=== PATIENT | male | born 1960 | race Caucasian/White ===

== ENCOUNTER 2017-02-28 09:36 | Emergency (ER) | payer BC, OTHER ==
[~2017-02-28] VITALS: Ht 170.2 cm; Wt 68.8 kg
[2017-02-28 09:45] VITALS: TEMP 36.8; Ht 170.2 cm; Wt 68.8 kg
[2017-02-28] MEDS ORDERED: IBUPROFEN 600 MG TAB PO STA (09:51)
[2017-02-28] MEDS ORDERED: OXYC-57 PO (09:53)
--- NOTE | 2017-02-28 09:55 | EMERGENCY ROOM VISIT NOTE ---
History Report prepared by Faina: Yamilet Kinsey Under the Supervision of: Dr. Curt Altamirano M.D. First contact with patient: 09:47 Chief Complaint: FINGER PAIN Stated Complaint: DISLOCATED LEFT RING FINGER History of Present Illness The patient is a 56 year old male who presents to the Emergency Room with complaints of constant left ring finger pain beginning just [employer]. The patient states that he had a fall today just prior to arrival and is concerned that he may have dislocated his finger. He reports that he pushed on the finger once but when it did not move he decided to come in to the ED. He denies any loss of consciousness. Source of History: patient Onset: just [employer] Position: finger(s) Quality: other (dislocation) Timing: constant Associated Symptoms: No LOC Review of Systems See HPI for pertinent positives & negatives. A total of 10 systems reviewed and were otherwise negative. Past Medical & Surgical Medical Problems: (1) No significant past medical history Surgical Problems: (1) No history of previous surgery Family History FH: cancer Social History Smoking Status: Never Smoker Alcohol Use: occasionally Marital Status: Occupation Status: employed Current/Historical Medications Scheduled Diphenhydramine Hcl (Sleep) (Diphenhydramine Hcl), 1 TAB PO HS Scheduled PRN Oxycodone/Acetaminophen 5MG/325MG (Percocet 5MG/325MG), 1-2 TAB PO Q4H PRN for Pain Allergies Coded Allergies: No Known Allergies (Unverified , 02/28/17) Physical Exam Vital Signs Date Time Temp Pulse Resp B/P (MAP) Pulse Ox O2 Delivery O2 Flow Rate FiO2 02/28/17 10:22 64 17 140/95 98 02/28/17 09:45 36.8 77 18 148/88 98 Room Air Physical Exam GENERAL: Patient is a healthy-appearing well-nourished [] HEAD: Normocephalic atraumatic EYES: Ocular movements intact pupils equal and react to light OROPHARYNX mucous membranes are moist no exudates present no erythema or edema present NECK: Supple no nuchal rigidity CHEST: Good equal expansion LUNGS: Clear and equal to auscultation CARDIAC: Normal S1 and S2 ABDOMEN: Soft nontender no guarding BACK: No CVA tenderness EXTREMITIES: No pain upon palpation normal muscle strength in all groups no clubbing cyanosis or edema. Obvious deformity to the finger which I easily reduced. NEURO: Patient is following commands and answering questions appropriately. Alert and oriented x3 Cranial Nerves 2-12 grossly intact Medical Decision & Procedures ER Provider Diagnostic Interpretation: X-ray results as stated below per interpretation by me and the radiologist: LEFT FOURTH FINGER 3 VIEWS DISCUSSION: There is soft tissue swelling centered on the proximal interphalangeal joint. There is no dislocation. There are tiny age-indeterminate calcific/bony densities located adjacent to the volar base of the middle phalanx, and volar aspect of the proximal phalanx distally. IMPRESSION: 1. Soft tissue swelling centered on the proximal to phalangeal joint 2. Tiny age-indeterminate calcific/bony densities located volar to the proximal interphalangeal joint Electronically signed by: Ilan Damon M.D. 02/28/2017 10:03 AM Dictated Date/Time: 02/28/2017 10:00 AM Medications Administered Medications (Trade) Dose Ordered Sig/Amy Route Start Time Stop Time Status Last Admin Dose Admin Ibuprofen (Motrin Tab) 600 mg NOW STAT PO 02/28/17 09:51 02/28/17 09:52 DC 02/28/17 09:59 600 MG Procedure There is an obvious dislocation to the PIP joint. It was reduced by putting pressure pulling back along the finger itself and easily went back into place. The patient tolerated the procedure well. ED Course 0947: Past medical records reviewed. The patient was evaluated in room B12B. A complete history and physical examination was performed. 0951: Ibuprofen 600mg PO. 1012: I reevaluated and updated the patient. 1018: Upon reexamination the patient is doing well. I discussed results and treatment plan with the patient. He verbalizes agreement and understanding. The patient is ready for discharge. Medical Decision Differential diagnosis: Etiologies such as fracture, dislocation, neurovascular compromise, compartment syndrome, soft tissue injury, as well as others were entertained. This is a 56-year-old male who presents emergency department complaining of dislocated ring finger. This was immediately reduced in the emergency department. The patient does have appear to have a small fracture present. For this reason the patient was placed in a splint and zoraida taped. He was given Motrin in the emergency department and written for Percocet at home. Patient will follow-up with Dr. Black's office. Patient was in agreement with the treatment plan. Medication Reconcilliation Current Medication List: was personally reviewed by me Blood Pressure Screening Patient's blood pressure: Elevated blood pressure Blood pressure disposition: Referred to PCP Impression Primary Impression: Finger dislocation Scribe Attestation The scribe's documentation has been prepared under my direction and personally reviewed by me in its entirety. I confirm that the note above accurately reflects all work, treatment, procedures, and medical decision making performed by me. Departure Information Dispostion Home / Self-Care Prescriptions Oxycodone/Acetaminophen 5MG/325MG (PERCOCET 5MG/325MG) Tab 1-2 TAB PO Q4H Y for Pain, #14 TAB Prov: Curt Altamirano MD 02/28/17 Referrals Sabas Estevez Jr,D.O. (PCP) Forms HOME CARE DOCUMENTATION FORM, IMPORTANT VISIT INFORMATION, WORK / SCHOOL INSTRUCTIONS Patient Instructions ED Dislocation Finger Redu, ED RICE, [facility] Additional Instructions Follow up with Dr Black's office You were found to have an elevated blood pressure today (>120 sytolic or >90 diastolic). Per medicare guidelines, you need to follow up with this blood pressure screening with your Primary Care Physician (PCP). For a new PCP call [phone]. You received narcotic or benzodiazepene medication while in the emergency room today. Do not drive, operate heavy machinery, or drink alcohol under the influence of this medication. Take 600 mg Ibuprofen every 6 hours Take Percocet for breakthrough pain You have been examined and treated today on an emergency basis only. This is not a substitute for, or an effort to provide, complete comprehensive medical care. It is impossible to recognize and treat all injuries or illnesses in a single emergency department visit. It is therefore important that you follow up closely with Dr Estevez. Call as soon as possible for an appointment. Thank you for your time and consideration. I look forward to speaking with you again soon. Please don't hesitate to call us if you have any questions. Problem Qualifiers Primary Impression: Finger dislocation Encounter type: initial encounter Qualified Codes: S63.259A - Unspecified dislocation of unspecified finger, initial encounter
--- NOTE | 2017-02-28 10:04 | DIAGNOSTIC IMAGING REPORT ---
LEFT FOURTH FINGER 3 VIEWS CLINICAL HISTORY: Left ring finger pain COMPARISON: None DISCUSSION: There is soft tissue swelling centered on the proximal interphalangeal joint. There is no dislocation. There are tiny age-indeterminate calcific/bony densities located adjacent to the volar base of the middle phalanx, and volar aspect of the proximal phalanx distally. IMPRESSION: 1. Soft tissue swelling centered on the proximal to phalangeal joint 2. Tiny age-indeterminate calcific/bony densities located volar to the proximal interphalangeal joint Electronically signed by: Ilan Damon M.D. 02/28/2017 10:03 AM Dictated Date/Time: 02/28/2017 10:00 AM
[2017-02-28] MEDS ORDERED: DIPH50TA10 PO (10:15)
[2017-02-28 10:22] VITALS: BP 140/95; PULSE 64; O2SAT 98
== END 2017-02-28 10:24 | disposition home or self-care (01) ==
LOC: C.EDB 09:45
DX: S63.285A Dislocation of proximal interphalangeal joint of left ring finger, initial encounter (principal); W19.XXXA Unspecified fall, initial encounter

== ENCOUNTER → 2017-09-21 | Outpatient (CLI) | payer BC ==
[~2017-09-21] MED LIST: DIPH50TA10 PO
== END | disposition home or self-care (01) ==
LOC: C.LAB1850 07:24
DX: Z13.220 Encounter for screening for lipoid disorders (principal); Z13.1 Encounter for screening for diabetes mellitus; N40.0 Benign prostatic hyperplasia without lower urinary tract symptoms